=== PATIENT | female | born 1970 | race Two or more races ===

== ENCOUNTER 2025-11-05 16:48 | Emergency (ER) | payer MEDICAID, SELFPAY ==
[2025-11-05 17:24] VITALS: BP 117/78; PULSE 77; RESP 18; TEMP 37; O2SAT 98; BMI 30.1
--- NOTE | 2025-11-05 18:19 | PD.EDUPEX ---
Upper Extremity Injury RME/HPI General Chief Complaint: Extremity Injury, Upper Stated Complaint: Fell 10 days ago right ARM pain Time Seen by Provider: 11/05/25 18:05 Source: patient and family Arrival date/time: 11/05/25 16:48 Mode of arrival: ambulatory Limitations: no limitations RME / HPI complaint: injury to: right Other Extremity Injury: Left: arm Other injuries: none Handedness: right Place: home Severity: moderate Severity scale (1-10): 4 Relieving factors: immobilization Exacerbating factors: movement of extremity Context: fall Related Data Allergies Allergy/AdvReac Type Severity Reaction Status Date / Time No Known Drug Allergies Allergy Verified 11/05/25 16:51 ED Exam Narrative Physical exam: Right arm pain is somewhat tender to palpation. It is mildly edematous. There is no apparent bony deformity or ecchymoses or anything suggestive of trauma. Neurovascular is intact. 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 Radial pulses 2+ and there is good capillary refill. General Limitations: Present no limitations General appearance: Present alert and in no apparent distress Head Head exam: Present atraumatic Eye Eye exam: Present normal appearance and EOMI ENT ENT exam: Present normal exam Neck Neck exam: Present normal inspection Extremities Exam Extremities exam: Present normal inspection, full ROM and tenderness (The right upper extremity is tender to palpation midshaft between the head of the humerus and the elbow.) Back Exam Back exam: Present normal inspection Neurological Exam Neurological exam: Present alert and oriented X3 Psychiatric Psychiatric exam: Present normal affect and normal mood Skin Skin exam: Present warm, dry and intact Course Course Course Narrative: Patient will have an x-ray of the right arm. Quality Measures none Orders Category Date Time Status XR humerus RT min 2V Stat Exams 11/05/25 18:41 Taken ORDERED Reevaluation(s) Reevaluation #1: NA Vital Signs Vital signs: Vital Signs Temperature 98.6 F 11/05/25 17:24 Pulse Rate 77 11/05/25 17:24 Respiratory Rate 18 11/05/25 17:24 Blood Pressure 117/78 11/05/25 17:24 Pulse Oximetry (%) 98 11/05/25 17:24 Oxygen Delivery Method Room Air 11/05/25 17:24 Pulse ox is 98% room air Extremity Injury MDM Narrative MDM Narrative:: 2 view humerus demonstrates no apparent fracture and I do not see any foreign body or any soft tissue swelling. Patient will be discharged in no apparent distress she is to follow-up with primary care physician within 1 week of today's visit or sooner if not better. Or she may return here. Patient data External records reviewed:: Other (specify) (NA) Clinical information provided by:: patient and family Social determinants that could affect healthcare access:: none (NA) Patient has the following chronic illnesses:: Negative How is presenting disease/condition affected by chronic disease/condition?: caused by Evaluation data The following diagnostics were reviewed and interpreted by me:: radiology exam(s) (Radiology demonstrates no apparent fracture, foreign body, soft tissue swelling) Lab and/or radiology exams considered but not ordered:: NA Interpretation Summary: NA Medications / Prescriptions Medications or Prescriptions considered but not ordered:: NONE Medication administrations:: NONE Consultations Consultation(s) initiated? (list below): No Diagnosis Upper Extremity Injury Differential Diagnosis: sprain and strain of wrist, fracture of wrist, finger sprain and dislocation of finger Most likely diagnosis given after review of the tests above:: Contusion right arm Admission Indicated Admission indicated?: not indicated Admission Request Was there a request for admission?: No Admission Attestation Admission request attestation: NA Disposition Plan Disposition Plan: other (specify) Discharge Attestation Discharge Attestation: Able discharged in no apparent distress Discharge Plan Plan Patient Disposition: HOME (Self Care) Discharge Disposition comment: Patient discharged in no apparent distress Patient condition on transfer: Stable Problem List Clinical Impression: Contusion of arm Patient/Caregiver Discharge Instructions Discharge Activity: activity as tolerated Education Materials: Bruises (Contusions), Bone Contusion Print Language: Niuean Stand Alone Forms: Jane Award Info., Patient Portal Info Letter DAISHA/LEOPOLDO Supervising Physician PRATIK Supervising Physician: YUNG
--- NOTE | 2025-11-05 18:41 | XR_ITS ---
Examination: Humerus 2 views right Technique: Humerus, AP lateral 2 views Date and time of exam: November 05, 2025, 1859 hours INDICATIONS: Patient fell today with injury to the upper arm, upper arm pain. FINDINGS: No shoulder fracture or dislocation Shaft of the humerus intact IMPRESSION: No acute fracture
== END 2025-11-05 21:52 | disposition home or self-care (01) ==
PROVIDERS: Emergency Provider Emergency Medicine
DX: S40.021A Contusion of right upper arm, initial encounter (principal); W19.XXXA Unspecified fall, initial encounter
CPT/HCPCS: 73060; 99282